=== PATIENT | male | born 1975 | race Caucasian/White ===

== ENCOUNTER 2021-01-20 10:07 | Emergency (ER) | payer MEDICAID, SELFPAY ==
[2021-01-20 10:13] VITALS: BP 125/84; PULSE 74; PULSE 80; RESP 11; O2SAT 97
[2021-01-20 10:14] VITALS: BP 133/93; PULSE 67; RESP 16; TEMP 36.7; O2SAT 98
--- OUTSIDE RECORDS SUMMARY | 2021-01-20 10:14 | XMS_ITS ---
:1975 Author Care Team Providers Name Role Phone P_[facility] Primary Care Provider [phone] Allergies Code Code System Name Reaction Severity Status Onset 65809 RxNorm Risperidone Vomiting ? Active ? 956657 RxNorm Ritalin ? ? Active ? Medications Name Status Start Date Stop Date ? ? amitriptyline 10 mg tablet Completed 11/10/200603/22 1 (one) Tablet: at bedtime Bactroban 2 % topical cream Completed ? 12/2018 APPLY TO THE AFFECTED AREA BY TOPICAL ROUTE 2 TIMES PER DAY FOR 7 DAYS DuoNeb 0.5 mg-3 mg(2.5 mg base)/3 mL solution for nebulizati on Completed 03/22/2010 02/07/2017 1 (one) Vial(s): Every 6 hours as needed famotidine 20 mg tablet Active ? Not avai lable Take 1 tablet twice a day by oral route for 15 days. Flovent HFA 110 mcg/actuation aerosol inhaler Completed 02/07/2017 2 (two) breaths: Twice daily Guaifenesin AC 10 mg-100 mg/5 mL oral liquid Completed 02/21/2017 1 (one) Milligram: twice a day guanfacine 1 mg tablet Active ? Not avail able pt takes one tab in the am and 2 in the evening hydrocodone 5 mg-acetaminophen Completed ? 0 11/01/2018 325 mg tablet ibuprofen 600 mg tablet Active ? Not avai lable lorazepam 1 mg tablet Active ? Not availa ble 1/2 tablet twice daily Maxalt 10 mg tablet Completed 10/16/2006 03/22/2010 1 (one) Tablet: as needed mupirocin 2 % topical ointment Active ? N ot available as directed olanzapine 10 mg tablet Active ? Not avai lable Take 1 tablet twice a day by oral route for 90 days. Prevacid 30 mg capsule,delayed release Completed 6 03/22/2010 1 (one) Cap DR: Daily Prilosec 20 mg capsule,delayed release Completed 0 02/07/2017 1 (one) Capsule DR: 1/2 hour prior to am meal SSD 1 % topical cream Active ? Not availa ble Vaseline Petrolatum Gauze 3 X 36 bandage Active ? Not available Apply 1 bandage 3 times a day by topical route. Zantac 300 mg tablet Completed 06/23/2016 02/07/2017 1 (one) Tablet: at bedtime Notes: only taking olanzapine an d lorazepam 01/16/21 Problems Name Status Onset Date Source ? Depressive Disorder Active ? History Disorder of Pancreas Active ? History Epidermoid Cyst of Skin Active ? History History of Traumatic Brain Injury Active ? History Adult Health Examination Active ? History Mental Disorder Active ? History Procedure by Method Unknown ? History Procedures Notes: no surgeries noted Results Lab Results Date Name Specimen Result Interpretation Description Value Range Status Address ? 06/11/2020 CBC W/ Auto BLD High Wbc 16.2 5.0-10.0 Final [place] Diff 10*3/uL 10*3/uL [facility] L ab (Internal) : [address] ? ? BLD ? Rbc 4.71 4.60-6.00 Final [place] 10*6/uL 10*6/uL [facility] (Internal) : [address] t ? ? BLD ? Hgb 14.6 g/dL 14.0-18.0 Final Nort h g/dL [facility] (Internal) : [address] t ? ? BLD ? Hct 44.6 % 41.0-51.0 Final [place] % [facility] (Internal) : [address] t ? ? BLD ? Mcv 94.7 fL 80.0-96.0 Final [place] fL [facility] (Internal) : [address] t ? ? BLD ? Mch 31.0 pg 26.0-32.0 Final [place] pg [facility] (Internal) : [address] t ? ? BLD ? Mchc 32.7 g/dL 31.0-35.0 Final Nort h g/dL [facility] (Internal) : [address] t ? ? BLD ? Rdw 14.2 % 11.5-14.5 Final [facility] [address] t ? ? BLD ? Plt 295 130-450 Final [facility] 10*3/uL 10*3/uL [facility] : [address] 06/11/2020 CMP, Serum or S High g/r 245 mg/dL 74-106 Fin al [facility] Plasma mg/dL [facility] [address] t ? ? S ? Bun 20 mg/dL 9-20 Final [facility] mg/dL [facility] : [address] ? ? S ? Crea 1.20 0.66-1.25 Final [facility] mg/dL mg/dL [facility] : [address] t ? ? S ? Ca 9.1 mg/dL 8.4-10.2 Final [facility] mg/dL [facility] : [address] t ? ? S ? Na 139 137-145 Final [place] mmol/L mmol/L [facility] : [address] ? ? S ? K 4.4 3.5-5.1 Final [facility] mmol/L mmol/L [facility] : [address] t ? ? S ? Cl 101 98-107 Final [place] mmol/L mmol/L [facility] : [address] ? ? S ? Tco2 29.0 22.0-30.0 Final [facility] mmol/L mmol/L [facility] : [address] t ? ? S ? Tp 7.0 g/dL 6.3-8.2 Final [facility] g/dL [facility] : [address] t ? ? S ? Alb 4.0 g/dL 3.5-5.0 Final [facility] g/dL [facility] : [address] t ? ? S ? Tbil 0.3 mg/dL 0.2-1.3 Final [facility] mg/dL [facility] : [address] t ? ? S ? Alp 106 U/L 50-136 Final [facility] U/L [facility] (Internal) : [address] t ? ? S Low Alt (Sgpt) 18 U/L 21-72 U/L Final No rth [facility] (Internal) : [address] t ? ? S ? Ast (Sgot) 29 U/L 17-59 U[facility]L [facility] [address] 06/11/2020 Ethanol, Blood S ? Alc <10.0 0.0-9.9 Miri l [place] mg/dL (rule [facility] override) Hospita l Lab mg/dL (Internal) : [address] [facility] 06/11/2020 Acetaminophen, S ? Actmn <10.0 10.0-30.0 Fi nal [place] Serum ug/mL ug/mL [facility] (Internal) : [address] [facility] 06/11/2020 Salicylate, S ? Vicente <1.0 0.0-20.0 Final [place] Quantitative, mg/dL mg/dL Cou [facility] L ab (Internal) : [address] 06/11/2020 Differential, BLD High Polys 86 % 40-75 % Final [place] Manual, Blood [facility] L ab (Internal) : [address] ? ? BLD ? Bands 1 % 0-5 % Final [facility] L [facility] (Internal) : [address] ? ? BLD Low Lymphs 7 % 20-50 % Final [facility] (Internal) : [address] ? ? BLD ? [place] 4 % 2-10 % Final [facility] L ab (Internal) : [address] ? ? BLD ? Eos 1 % 0-6 % Final [facility] (Internal) : [address] ? ? BLD ? Baso 1 % 0-1 % Final [facility] L ab (Internal) : [address] ? ? BLD ? Atyp Lymph 0 % ? Final [facility] (Internal) : [address] ? ? BLD ? Plts, Est. adequate adequate Final [facility] [address] ? ? BLD ? RBC normal normal Final [facility] L ab (Internal) : [address] 06/11/2020 Neutrophil BLD ? Anc-manual 14.10 ? Miri l [place] Count, 10*3/uL [facility] Lab (Anc), Blood (Int ernal): [address] 06/11/2020 Nlr-manual BLD High Nlr - 12.43 0.00-3.20 Final [facility] L ab (Internal) : [address] [facility] 06/11/2020 EKG Done by ED ? No ? ? ? North observation Count ry recorded. Hospita l Lab (Internal) : [address] 06/21/2018 TSH, Serum or S - Tsh 1.43 0.47-4.68 Fin [facility] Plasma u[IU]/mL u[IU]/mL [facility] L ab (Internal) : [address] 06/21/2018 T4, Free, S - Ft4 1.14 0.78-2.19 Final [place] Serum NG/dL NG/dL [facility] (Internal) : [address] 02/23/2017 Venipuncture BLD ? Venpn* ? ? Final [facility] L [facility] (Internal) : [address] 02/23/2017 Lipid Panel, S ? Chol 117 mg/dL 50-200 Miri l [place] Serum mg/dL [facility] L ab (Internal) : [address] t ? ? S ? Trig 66 mg/dL 10-150 Final [place] mg/dL [facility] L [facility] (Internal) : [address] ? ? S ? Hdl 41 mg/dL 40-60 Final [facility] mg/dL [facility] (Internal) : [address] ? ? S ? Ldl 63 mg/dL 0-130 Final [place] mg/dL [facility] L ab (Internal) : [address] 02/23/2017 Glucose, Serum S ? g/r 90 mg/dL 74-106 Fin al [place] or Plasma mg/dL [facility] ab (Internal) : [address] Past Encounters None recorded. Social History Tobacco Smoking Status Heavy Tobacco Smoker (1 PPD) Notes: 1 ppd Vaccine List Vaccine Type Tdap 02/21/2017?0.5 mL Plan of Care Reminders Provider Appointments None ? ? recorded. Lab None ? ? recorded. Referral None ? ? recorded. Procedures None ? ? recorded. Surgeries None ? ? recorded. Imaging None ? ? recorded. Vitals 11/08/2018 12:40PM Follow Up 20 Height Weight BMI Blood Pressure 187.96 cm 70.72 kg 20 kg/m2 132/64 mm[Hg] 11/01/2018 01:00PM Acute 20 Weight Blood Pressure 69.58 kg 94/62 mm[Hg] 03/13/2017 Blood Pressure 112/68 mm[Hg] 03/13/2017 Weight 77.97 kg 02/21/2017 Weight 78.74 kg 02/21/2017 Height Blood Pressure 179.07 cm 128/68 mm[Hg] 03/22/2010 Blood Pressure 122/80 mm[Hg] 11/09/2006 Height Blood Pressure 185.42 cm 120/82 mm[Hg] 11/09/2006 Weight 69.4 kg 10/16/2006 Weight 68.95 kg 10/16/2006 Blood Pressure 118/82 mm[Hg] 08/31/2006 Weight 68.04 kg 08/31/2006 Height Blood Pressure 185.42 cm 130/66 mm[Hg]
--- NOTE | 2021-01-20 10:39 | ED.GENADUL_ITS ---
Discharge Plan Disposition Patient Disposition: HOME Condition: Good Discharge Details Clinical Impression: Gastritis Primary Care Provider: None,None ED Provider: Maliha Guzmán Home Meds and New Rx's Prescriptions: New famotidine [Pepcid] 20 mg tablet 20 mg PO DAILY Qty: 14 RF: 0 omeprazole magnesium [Prilosec OTC] 20 mg tablet,delayed release (DR/EC) 20 mg PO DAILY Qty: 30 RF: 0 sucralfate [Carafate] 1 gram tablet 1 g PO BID Qty: 60 RF: 0 No Action olanzapine 5 mg tablet 5 mg PO DAILY RF: 0 olanzapine 15 mg tablet 15 mg PO QHS RF: 0 lorazepam 1 mg tablet 1 mg PO DAILY RF: 0 Discharge Instructions Instructions: Gastritis (ED) Additional Instructions: Stay away from spicy foods, acidic foods, caffeinated beverages, fatty. Clear liquid diet as tolerated Follow-up with your primary care physician in 1 week for reevaluation Take the medications that have been prescribed to you and starting today Return earlier should you have new or worsening complaints Medical Decision Making No nausea, vomiting, diarrhea, low suspicion for gastroenteritis, suspect gastritis given worsening of symptoms with food consumption, may have an ulcer to, will try supportive therapy with Carafate, Prilosec, Pepcid and refer back to primary care physician for further management Stacy discussed Discharged home in stable condition with stable vital I reviewed all findings from patient's prior evaluation at [facility] yesterday Diagnostic lab are reviewed including discharge summary Return precautions discussed and patient expressed understanding Differential Diagnosis Differential Diagnosis: Gastritis, pancreatitis, cholecystitis, gastroenteritis Medical Records Medical records reviewed: Yes I reviewed the patient's medical records. Lab Data Lab results reviewed: Yes I reviewed the patient's lab results. HPI 45-year-old male presents for reports of left upper quadrant and epigastric pain. Patient states he was seen at [facility] yesterday and was told that he has a infection. He denies any chest pain or shortness of breath. denies history denies any diarrhea. States symptoms are exacerbated by eating and drinking. Denies any additional complaints this time. Denies known contacts. Denies alcohol consumption or drug use. Denies any urinary complaints. Denies any chest pain or shortness of breath General Date/Time Provider Initiated Documentation: 01/20/21 10:29 . Related Data Home Medications Medication Instructions Recorded Confirmed famotidine [Pepcid] 20 mg PO DAILY #14 tab 01/20/21 lorazepam 1 mg PO DAILY 01/20/21 01/20/21 olanzapine 5 mg PO DAILY 01/20/21 01/20/21 olanzapine 15 mg PO QHS 01/20/21 01/20/21 omeprazole magnesium [Prilosec OTC] 20 mg PO DAILY #30 tab 01/20/21 sucralfate [Carafate] 1 g PO BID #60 tab 01/20/21 Previous Rx's Medication Instructions Recorded famotidine [Pepcid] 20 mg PO DAILY #14 tab 01/20/21 omeprazole magnesium [Prilosec OTC] 20 mg PO DAILY #30 tab 01/20/21 sucralfate [Carafate] 1 g PO BID #60 tab 01/20/21 Allergies Allergy/AdvReac Type Severity Reaction Status Date / Time No Known Allergies Allergy Unverified 01/20/21 10:19 General Stated Complaint: Abd Prob ROMEL: 3 Review of Systems Narrative: Review of systems obtained x7 aside from where indicated in HPI PFSH Social History Smoking risk assessment performed?: No Drug use: Daily Substance use type: marijuana Do you feel safe at home: Yes Do you feel safe in your relationship?: Yes Exam Const General: healthy appearing HENMT Other: Moist mucous membranes Chest Chest: normal inspection of the chest Resp Effort & Inspection: normal respiratory effort Auscultation: clear to auscultation bilaterally Cardio Rate: regular rate Rhythm: regular rhythm GI Other: Tenderness left upper quadrant, no rebound or guarding, no CVA tenderness No abdominal bruit or pulsatile mass Extrem Other: Distal pulses intact Course Vital Signs Vital signs: Vital Signs Temperature 36.7 C 01/20/21 10:14 Pulse 67 01/20/21 10:14 Respiratory Rate 16 01/20/21 10:14 Blood Pressure 133/93 H 01/20/21 10:14 Pulse Oximetry 98 01/20/21 10:14 Temperature 36.7 C 01/20/21 10:14 Temperature Source Skin 01/20/21 10:14 Pulse 67 01/20/21 10:14 Respiratory Rate 16 01/20/21 10:14 Respiratory Effort Non-Labored 01/20/21 10:14 Blood Pressure 133/93 H 01/20/21 10:14 Blood Pressure Position Sitting 01/20/21 10:14 Pulse Oximetry 98 01/20/21 10:14 Oxygen Delivery Method Room Air 01/20/21 10:14 Oxygen Flow Rate 0 01/20/21 10:14 Pain Level 3 01/20/21 10:14
[2021-01-20 11:00] LABS: Abs Immature Grans 0.03 10^3/uL (0.0-0.06); Absolute Basophil Count 0.04 10^3/uL (0.0-0.2); Absolute Eosinophil Count 0.04 10^3/uL (0.0-0.7); Absolute Lymphocyte Count 1.71 10^3/uL (1.2-3.4); Absolute Monocyte Count 0.64 10^3/uL (0.1-0.8); Absolute Neutrophil Count 7.46 10^3/uL (1.2-6.7); Basophils % 0.4; Eosinophils % 0.4; HCT 42.9 % (40.0-50.0); HGB 14.1 g/dL (13.5-17.5); Immature Grans % 0.3; Lymphocytes % 17.2; MCH 30.6 pg (27.0-33.0); MCHC 32.9 % (32.0-36.0); MCV 93.1 fL (80-95); Monocytes % 6.5; Neutrophils % 75.2; Nucleated RBC 0 %; Platelet Count 279 10^3/uL (130-400); RBC 4.61 10^6/uL (4.36-5.78); RDW 13.4 % (11.8-14.1); RDW-SD 45.3 fL; WBC 9.92 10^3/uL (4.4-10.8)
[2021-01-20 11:16] LABS: ALT 21 U/L (16-63); AST 10 U/L (15-37); Albumin 3.6 g/dL (3.4-5.0); Alkaline Phosphatase 89 U/L (46-116); Anion Gap 8.2 mmol/L (3-11); BUN 12 mg/dL (7-18); Bilirubin, Total 0.7 mg/dL (0.2-1.0); CO2 27.8 mmol/L (21.0-32.0); CREATININE 0.9 mg/dL (0.70-1.30); Calcium 8.7 mg/dL (8.5-10.1); Chloride 104 mmol/L (98-107); Glucose 108 mg/dL (74-106); Lipase 77 U/L (73-393); Potassium 4.2 mmol/L (3.5-5.1); Sodium 140 mmol/L (136-145); Total Protein 6.8 g/dL (6.4-8.2)
--- NOTE | 2021-01-20 12:02 | DI.CT_ITS ---
EXAM: CT ABDOMEN PELVIS W CLINICAL HISTORY: LUq pain. TECHNIQUE: Imaging Protocol: Axial computed tomography images with coronal and sagittal reformatted images were created and reviewed CONTRAST MATERIAL: Intravenous: Omnipaque 100cc Oral: None COMPARISON: No exams were available for comparison FINDINGS: VISUALIZED LUNG BASES: No nodules nor pleural effusions evident. ABDOMEN: There is no ascites. LIVER: There are no obvious focal hepatic lesions evident . GALLBLADDER/BILIARY: No obvious gallbladder pathology. CBD is not dilated. PANCREAS: No evidence of pancreatic mass nor dilatation of the pancreatic duct. SPLEEN: Spleen is not enlarged. No obvious intrasplenic lesions. Splenic and portal veins are paten t. ADRENALS: There are no significant adrenal masses. KIDNEYS:No cysts evident. No solid renal masses. No calculi nor hydronephrosis.. ABDOMINAL AORTA: Abdominal aorta is not enlarged. LYMPH NODES:There is no retroperitineal nor paraaortic adenopathy. ABDOMINAL WALL/GI: No evidence of significant anterior abdominal wall hernia. No bowel obstruction. PELVIS: GI: The appendix is difficult to identified separate structure but there are no obvious secondary sig ns of acute appendicitis.No evidence of sigmoid diverticulitis. LYMPH NODES: There is no intrapelvic nor inguinal adenopathy. REPRODUCTIVE: Prostate size upper normal. URINARY BLADDER: No calculi nor obvious masses evident OSSEOUS: No significant osseous lesions. IMPRESSION: 1. No obvious acute findings in the abdomen and pelvis. Report called by myself to ER provider. RADIATION DOSE DELIVERED: 566.55mGy.cm Total DLP DATA REPOSITORY: All CT scans at this facility are submitted to the National Radiology Data Registry (NRDR) Dose Index Registry (DIR) with the [employer] (ACR). RADIATION OPTIMIZATION: All CT scans at this facility use at least one of these dose optimization te chniques: automated exposure control; mA and/or kV adjustment per patient size (includes targeted exa ms where dose is matched to clinical indication); or iterative reconstruction.
[2021-01-20] MEDS: Omnipaque 350 MG/ML 100 ML BTL IJ (12:06)
[2021-01-20] MEDS: Normal Saline - Diluent 50 ML VIAL IV (12:06)
[2021-01-20 13:20] VITALS: BP 157/100; PULSE 60; RESP 18; TEMP 36.7; O2SAT 98
== END 2021-01-20 13:26 | disposition home or self-care (01) ==
PROVIDERS: Emergency Provider Physician Assistant
DX: K29.70 Gastritis, unspecified, without bleeding (principal)
CPT/HCPCS: 80053; 83690; 99285; 74177; 85025; 99283; J3490